=== PATIENT | female | born 1950 | race Caucasian/White ===

== ENCOUNTER 2016-12-23 04:54 | Outpatient (CLI) | payer OTHER | END 2016-12-23 04:55 | disposition critical access hospital (66) | DX: M79.661 Pain in right lower leg (principal); R09.89 Other specified symptoms and signs involving the circulatory and respiratory systems; R47.9 Unspecified speech disturbances; R41.0 Disorientation, unspecified | CPT/HCPCS: A0425; A0429 ==

== ENCOUNTER 2016-12-23 05:15 | Observation (INO) | payer OTHER ==
--- NOTE | 2016-12-23 05:30 | ED Physician Documentation ---
History of Present Illness - Stated complaint Stated Complaint: ALOC/KNEE PN - Chief complaint Chief Complaint: Neuro - History obtained from History obtained from: Patient, EMS - History of Present Illness Timing: How many hours ago (1) Pain level max: 6 Pain level now: 0 Improved by: nothing Worsened by: nothing - Additonal information Additional information: She is a 66-year-old female who presents to the emergency department complaining of right knee pain earlier tonight, this is since resolved. Her mother reports that she also had approximately 5-10 minutes of "garbled speech" . No focal neurological deficits. This is since resolved. Patient states that now she just feels very tired. was diagnosed with pulmonary embolism in August 2016, had been on warfarin, but stopped this 5 days ago. Has a history of A. fib. had a small amount of chest pain and difficulty breathing tonight. She has an appointment with her PCP in 2 weeks to have her right knee injected with steroids. States she does not normally drink alcohol, but had vodka last night and took Vicodin for her knee and back pain. This was approx 8pm. Went to bed at 11p. Review of Systems Ten Systems: 10 systems reviewed and negative Constitutional: denies: Fever, Chills Ears: denies: Ear pain Nose: denies: Rhinorrhea / runny nose, Congestion Throat: denies: Sore throat Cardiac: denies: Chest pain / pressure Respiratory: denies: Cough GI: denies: Abdominal Pain, Nausea, Vomiting, Diarrhea Skin: denies: Rash Musculoskeletal: denies: Neck pain, Back pain Neurologic: denies: Focal weakness, Numbness, Headache PD PAST MEDICAL HISTORY - Past Medical History Past Medical History: Yes Endocrine/Autoimmune: HyPOthyroidism Other Past Medical History: Pe - Past Surgical History Past Surgical History: No - Present Medications Home Medications: Ambulatory Orders Medication Instructions Recorded Confirmed Levothyroxine Sodium [Synthroid] 175 mcg PO DAILY 12/23/16 12/23/16 - Allergies Allergies/Adverse Reactions: Allergies Allergy/AdvReac Type Severity Reaction Status Date / Time No Known Drug Allergies Allergy Verified 12/23/16 05:22 - Social History Does the pt smoke?: No Smoking Status: Never smoker Does the pt drink ETOH?: Yes Does the pt have substance abuse?: No - Immunizations Immunizations are current?: Yes - POLST Patient has POLST: No PD ED PE NORMAL - Vitals Vital signs reviewed: Yes - General General: Alert and oriented X 3, No acute distress, Well developed/nourished - HEENT HEENT: Atraumatic, PERRL, EOMI, Ears normal, Moist mucous membranes, Pharynx benign - Neck Neck: Supple, no meningeal sign, No bony TTP - Cardiac Cardiac: RRR, Strong equal pulses - Respiratory Respiratory: No respiratory distress, Clear bilaterally - Abdomen Abdomen: Soft, Non tender, Non distended - Back Back: No CVA TTP, No spinal TTP - Derm Derm: Warm and dry, No rash - Extremities Extremities: No deformity, No tenderness to palpate, No edema, No calf tenderness / cord - Neuro Neuro: Alert and oriented X 3, facing machine operator 2-12 intact, No motor deficit, No sensory deficit, Normal speech - Psych Psych: Normal mood, Normal affect Results - Vitals Vitals: Vital Signs - 24 hr 12/23/16 12/23/16 05:14 05:54 Temperature 36.9 C Heart Rate 78 73 Respiratory 16 16 Rate Blood Pressure 146/75 H 117/57 L O2 Saturation 98 94 Oxygen O2 Source Room air - EKG (time done) 0529 Rate: Rate (enter#) (77) Rhythm: NSR [place]: Normal Intervals: Normal [place] QRS: Normal Ischemia: Normal ST segments, Q waves (III) - Labs Labs: Laboratory Tests 12/23/16 12/23/16 12/23/16 05:30 05:49 05:49 WBC 5.9 RBC 4.16 L Hgb 12.6 Hct 37.6 MCV 90.5 MCH 30.4 MCHC 33.6 RDW 13.8 Plt Count 203 MPV 10.0 Neut # 2.4 Lymph # 2.6 [place] # 0.6 Eos # 0.2 Baso # 0.0 Absolute Nucleated RBC 0.00 Nucleated RBCs 0.0 Sodium 140 Potassium 3.5 Chloride 107 Carbon Dioxide 25 Anion Gap 8.0 BUN 13 Creatinine 0.6 Estimated GFR (MDRD) 101 Glucose 114 H Calcium 8.8 Total Bilirubin 0.6 AST 25 ALT 20 Alkaline Phosphatase 92 Troponin I Total Protein 6.8 Albumin 3.9 Globulin 2.9 Albumin/Globulin Ratio 1.3 Lipase 16 L Urine Color YELLOW Urine Clarity CLEAR Urine pH 7.0 Ur Specific [place] 1.010 Urine Protein NEGATIVE Urine Glucose (UA) NEGATIVE Urine Ketones NEGATIVE Urine Occult Blood NEGATIVE Urine Nitrite NEGATIVE Urine Bilirubin NEGATIVE Urine Urobilinogen 0.2 (NORMAL) Ur Leukocyte Esterase SMALL H Urine RBC None Seen Urine WBC 4-5 Ur Squamous Epith Cells MOD Squamous H Urine Bacteria None Seen Ur Microscopic Review INDICATED Urine Culture Comments NOT INDICATED Salicylates < 6.0 Urine Opiates Screen POSITIVE H Ur Oxycodone Screen NEGATIVE Urine Methadone Screen NEGATIVE Ur Propoxyphene Screen NEGATIVE Acetaminophen < 10 L Ur Barbiturates Screen NEGATIVE Ur Tricyclics Screen NEGATIVE Ur Phencyclidine Scrn NEGATIVE Ur Amphetamine Screen POSITIVE H U Methamphetamines Scrn NEGATIVE U Benzodiazepines Scrn NEGATIVE Urine Cocaine Screen NEGATIVE U Cannabinoids Screen NEGATIVE Ethyl Alcohol < 5.0 12/23/16 05:49 WBC RBC Hgb Hct MCV MCH MCHC RDW Plt Count MPV Neut # Lymph # [place] # Eos # Baso # Absolute Nucleated RBC Nucleated RBCs Sodium Potassium Chloride Carbon Dioxide Anion Gap BUN Creatinine Estimated GFR (MDRD) Glucose Calcium Total Bilirubin AST ALT Alkaline Phosphatase Troponin I < 0.04 Total Protein Albumin Globulin Albumin/Globulin Ratio Lipase Urine Color Urine Clarity Urine pH Ur Specific [place] Urine Protein Urine Glucose (UA) Urine Ketones Urine Occult Blood Urine Nitrite Urine Bilirubin Urine Urobilinogen Ur Leukocyte Esterase Urine RBC Urine WBC Ur Squamous Epith Cells Urine Bacteria Ur Microscopic Review Urine Culture Comments Salicylates Urine Opiates Screen Ur Oxycodone Screen Urine Methadone Screen Ur Propoxyphene Screen Acetaminophen Ur Barbiturates Screen Ur Tricyclics Screen Ur Phencyclidine Scrn Ur Amphetamine Screen U Methamphetamines Scrn U Benzodiazepines Scrn Urine Cocaine Screen U Cannabinoids Screen Ethyl Alcohol - Rads (name of study) head CT Radiology: Prelim report reviewed, EMP read contemporaneously, See rad report ( no acute abnormality.) cxr Radiology: Prelim report reviewed, EMP read contemporaneously, See rad report ( no acute disease) PD MEDICAL DECISION MAKING - ED course Complexity details: reviewed results, re-evaluated patient, considered differential, d/w patient, d/w it solutions sales consultant ED course: Patient is a 66-year-old female who presents to the emergency department with what sounds like a TIA tonight, with 10-15 minutes of garbled speech. She was recently taken off warfarin, approximately 4-5 days ago. They thought that her pulmonary embolism was due to estrogen use. She is not currently taking aspirin. No focal neurological deficits here. No acute laboratory abnormalities to explain her symptoms. Discussed the case with Dr. Mccain and will place in observation for TIA. This document was made in part using voice recognition software. While efforts are made to proofread this document, sound alike and grammatical errors may occur. Departure - Departure Disposition: ED Place in Observation Clinical Impression: TIA (transient ischemic attack) Qualifiers: Transient cerebral ischemia type: unspecified Qualified Code(s): G45.9 - Transient cerebral ischemic attack, unspecified Condition: Good NIHSS - Time Time: 05:25 - Level of Consciousness Level of consciousness: (0) Alert, Keenly responsive LOC Questions: (0) Answers both Q's correct LOC Commands: (0) Performs both correctly - Gaze Best Gaze: (0) Normal - Visual Visual: (0) No loss - Facial Palsy Facial Palsy: (0) Normal, symmetrical movement - Motor Arms (both separate) Motor Arm (right): (0) No drift Motor Arm (left): (0) No drift - Motor Legs (both separate) Motor Leg (right): (0) No drift Motor Leg (left): (0) No drift - Limb Ataxia Limb Ataxia: (0) Absent - Sensory Sensory: (0) Normal - Best Language Best Language: (0) No aphasia - Dysarthria Dysarthria: (0) Normal - Extinction and Inattention (formally neg Extinction and inattention: (0) No abnormality - Total Score/Results Total Score/Result: 0
[2016-12-23 05:38] LABS: BILIRUBIN,URINE NEGATIVE (NEGATIVE)
[2016-12-23 05:54] LABS: UA w/ MICROSCOPIC CHARGE YES; UR CULTURE IF IND NOT INDICATED
[2016-12-23 05:56] LABS: BASOPHILS % (AUTO) 0.8 %; EOSINOPHILS # (AUTO) 0.2 10^3/uL (0.0-0.7); EOSINOPHILS % (AUTO) 2.8 %; HCT - HEMATOCRIT 37.6 % (37.0-47.0); HGB - HEMOGLOBIN 12.6 g/dL (12.0-16.0); LYMPHOCYTES # (AUTO) 2.6 10^3/uL (1.5-3.5); LYMPHOCYTES % (AUTO) 44.7 %; MEAN CORPUSCULAR HEMOGLOBIN 30.4 pg (27.0-31.0); MEAN CORPUSCULAR HGB CONC 33.6 g/dL (32.0-36.0); MEAN CORPUSCULAR VOLUME 90.5 fL (81.0-99.0); MONOCYTES # (AUTO) 0.6 10^3/uL (0.0-1.0); MONOCYTES % (AUTO) 10.6 %; NEUTROPHILS # (AUTO) 2.4 10^3/uL (1.5-6.6); NEUTROPHILS % (AUTO) 41.1 %; RED BLOOD COUNT 4.16 10^6/uL (4.20-5.40); RED CELL DISTRIBUTION WIDTH 13.8 % (12.0-15.0); UNCORRECTED WHITE BLOOD COUNT 5.9 x10^3/uL; WHITE BLOOD COUNT 5.9 x10^3/uL (4.8-10.8)
[2016-12-23 06:11] LABS: ALBUMIN/GLOBULIN RATIO 1.3 (1.0-2.2); BILIRUBIN,TOTAL 0.6 mg/dL (0.2-1.0); BUN - BLOOD UREA NITROGEN 13 mg/dL (6-20); CALCIUM 8.8 mg/dL (8.5-10.3); CARBON DIOXIDE - CO2 25 mmol/L (21-32); CHLORIDE 107 mmol/L (101-111); CREATININE 0.6 mg/dL (0.4-1.0); GFR - MDRD 101 (>89); GLUCOSE 114 mg/dL (70-100); LIPASE 16 U/L (22-51); POTASSIUM 3.5 mmol/L (3.5-5.0); SALICYLATE < 6.0 mg/dL; SODIUM 140 mmol/L (135-145); TOTAL PROTEIN 6.8 g/dL (6.7-8.2)
[2016-12-23 06:13] LABS: ACETAMINOPHEN < 10 ug/mL (10-30)
--- NOTE | 2016-12-23 06:17 | XRAY Preliminary Report ---
Exam: XR Chest 1 View IMPRESSION: No significant cardiopulmonary abnormality demonstrated. [facility] SITE ID: [id number]
--- NOTE | 2016-12-23 06:20 | XRAY Report ---
EXAM: CHEST RADIOGRAPHY EXAM DATE: 12/23/2016 05:48 AM. CLINICAL HISTORY: Chest pain. COMPARISON: None. TECHNIQUE: 1 view. FINDINGS: Lungs/Pleura: Small linear left lung base atelectasis and/or scarring. No focal opacities evident. No pleural effusion. No pneumothorax. Mediastinum: Within exam limitations, cardiomediastinal contour is normal. Other: Flattening deformity of the posterior supra-acetabular aspect of the left humeral head noted. On anchor within the left humeral head. IMPRESSION: No significant cardiopulmonary abnormality demonstrated. [facility] Referring Provider Line: [phone] SITE ID: [id number]
[2016-12-23] MEDS ORDERED: ACETAMINOPHEN 325 MG TABLET PO PRN (06:26)
[2016-12-23] MEDS ORDERED: IBUPROFEN 600 MG TABLET PO PRN (06:26)
[2016-12-23] MEDS ORDERED: ONDANSETRON 4 MG/2 ML VIAL IVP PRN (06:26)
[2016-12-23] MEDS ORDERED: HYDROcod/ACETAM 5/325 MG TABLET PO PRN (06:26)
[2016-12-23] MEDS ORDERED: PROCHLORPERAZINE 10 MG/2 ML VIAL IVP PRN (06:26)
[2016-12-23] MEDS ORDERED: SODIUM CHLORIDE FLUSH 0.9% 10 ML SYRINGE IVP PRN (06:26)
--- NOTE | 2016-12-23 06:27 | CT Preliminary Report ---
Exam: CT Head W/O IMPRESSION: Normal head CT. [facility] SITE ID: [id number]
--- NOTE | 2016-12-23 06:30 | CT Report ---
EXAM: CT HEAD EXAM DATE: 12/23/2016 05:47 AM. CLINICAL HISTORY: Slurred speech. COMPARISON: None. TECHNIQUE: Multiaxial CT images were obtained from the foramen magnum to the vertex. IV contrast: Non e. Reformats: Coronal. In accordance with CT protocol optimization, one or more of the following dose reduction techniques w ere utilized for this exam: automated exposure control, adjustment of mA and/or KV based on patient s ize, or use of iterative reconstructive technique. FINDINGS: Parenchyma: No intraparenchymal hemorrhage. No evidence of mass, midline shift, or CT findings of inf arction. Perez-white differentiation is distinct. Extraaxial Spaces: Normal for age. No subdural or epidural collections identified. Ventricles: Normal in size and position. Sinuses: Imaged paranasal sinuses, orbits, and mastoids show no significant abnormality. Bones: No evidence of fracture or calvarial defect. Other: None. IMPRESSION: Normal head CT. [facility] Referring Provider Line: [phone] SITE ID: [id number]
[2016-12-23 06:51] LABS: CHOL/HDL RATIO 4.9 (<4.4); CHOLESTEROL 271 mg/dL; HDL CHOLESTEROL 55 mg/dL; TRIGLYCERIDES 493 mg/dL
[2016-12-23] MEDS ORDERED: PANTOPRAZOLE 40 MG TABLET PO SCH (07:00)
[2016-12-23] MEDS ORDERED: LEVOTHYROXINE 75 MCG TABLET PO SCH (07:00)
--- NOTE | 2016-12-23 07:00 | HISTORY & PHYSICAL EXAMINATION ---
Chief Complaint - Chief Complaint Chief Complaint: garbled speech History of Present Illness - Admitted From Admitted From:: emergency department - History Obtained From Records Reviewed: yes History obtained from: patient Exam Limitations: none - History of Present Illness HPI Comment/Other: Patient is a 66-year-old female with a past medical history significant for hypothyroidism, paroxysmal atrial fibrillation, depression, osteoarthritis and recent pulmonary embolism in August of 2016 for which she stopped taking Coumadin just this week after she convinced her primary care physician that she did not need to take it presented to the emergency department with a chief complaint of garbled speech. The patient states that she was in her normal state of health until last night when she started having pain in her knee and right leg. She states that she took a Vicodin and had some alcohol last night and went to bed. She states she woke in the middle of the night and she felt like something was wrong. She states that she was having tightness in her chest she felt short of air and was dizzy. She states that she told her mom to call 911 because she felt that something was wrong and she needed to go to the hospital. The patient is here on [facility] is in her mom she is originally from [place], [place]. She states that when she tried to speak to her mom she could not get the words out. Her mom said that there was something wrong with her speech. The patient states that this lasted for 5-10 minutes and resolved prior to coming into the emergency department. She states however when she arrived she began had trouble expressive aphasia. This however again resolved. She states now she continues to have tightness in her chest and feels anxious. The patient otherwise denies any headaches, blurred vision, runny nose, she denies any fevers or chills. The patient denies any abdominal pain nausea vomiting or diarrhea. She denies any urinary symptoms. She denies any focal neurologic deficits. On presentation to the emergency department the patient's vital signs were stable. The patient's work was all within normal limits. She underwent a CT of her head which showed no acute intracranial process. Patient had a chest x-ray which showed no acute pulmonary abnormalities. Patient's EKG and troponin were within normal limits. The patient was placed in observation for possible TIA. Review of Systems - Constitutional Constitutional: denies: Fatigue, Fever, Chills, Malaise, Weakness, Poor appetite , Diaphoresis, Night sweats, Weight gain, Weight loss - Eyes Eyes: denies: Pain, Amaurosis, Blurred vision, Spots in vision, Vision loss, Dipolpia, Corrective lenses - Ears, Nose & Throat Ears, Nose & Throat: denies: Ear pain, Hearing loss, Hearing aids, Tinnitus, Vertigo, Nasal pain, Nasal obstruction, Nasal congestion, Sore throat, Hoarseness - Cardiovascular Cariovascular: reports: Exertional dyspnea, Decr. exercise tolerance. denies: Irregular heart rate, Palpitations, Chest pain, Edema, Lightheadedness, Syncope , Orthopnea - Respiratory Respiratory: reports: SOB at rest, SOB with exertion, Pleuritic pain. denies: Cough, Sputum production, Wheezing, Hemoptysis, Orthopnea - Gastrointestinal Gastrointestinal: denies: Abdominal pain, Abdominal distention, Constipation, Diarrhea, Change in bowel habits, Black stools, Bloody stools, Nausea, Vomiting , Coffee grounds emesis, Reflux/heartburn, Poor appetite - Genitourinary Genitourinary: denies: Dysuria, Frequency, Urgency, Hematuria - Musculoskeletal Musculoskeletal: reports: Stiffness, Joint pain (knee right). denies: Muscle pain, Back pain, Muscle aches, Limited range of motion, Muscle weakness - Integumentary Integumentary: denies: Rash, Lesions, Dryness, Nail changes - Neurological Neurological: reports: Dizziness, Slurred speech. denies: General weakness, Focal weakness, Headache, Numbness, Memory problems, Abnormal gait, Seizures, Incoordination - Psychiatric Psychiatric: reports: Depression, Anxiety. denies: Suicidal - Endocrine Endocrine: denies: Polyuria, Polydypsia, Polyphagia, Intolerance to cold - Hematologic/Lymphatic Hematologic/Lymphatic: denies: Anemia, Bruising, Lymphadenopathy History - Past Medical History Cardiovascular: reports: Atrial flutter (paraoxysmal ) Respiratory: reports: Other (PE) Neuro: reports: None Endocrine/Autoimmune: reports: HyPOthyroidism GI: reports: None COMPOUNDING TECHNICIAN: reports: None : reports: None HEENT: reports: None Psych: reports: Depression, Anxiety Musculoskeletal: reports: Osteoarthritis Derm: reports: None MRSA Hx?: No Other Past Medical History: 1. Thyroidism. 2. Paroxysmal atrial fibrillation. 3. Pulmonary embolism in August of 2016. 4. Hypothyroidism. 5. Osteoarthritis. 6. Depression. 7. Anxiety - Family & Social History Family History: Mother: Alive and Well, CAD, Hypertension, LA, Father: Family History Comment/Other: Patient states that her mother has had an LA, hypertension and aortic and thoracic aneurysms. Her grandfather had an LA. Her father of old age. Living arrangement: At home Living Situation: Alone Social History Notes: The patient is currently visiting her mom in [facility] for the holidays. She lives in [facility] she lives alone. She is she has one son. She has never smoked she does drink alcohol occasionally and denies any illicit drug use. - Substance History Use: Uses substance without health or social issues: NONE Abuse: Recurrent use of substance despite neg consequences: NONE Dependence: Experiences withdrawal or developed tolerances: NONE - POLST Patient has POLST: No POLST Status: Full Code Meds/Allgy - Home Medications Home Medications: Ambulatory Orders Medication Instructions Recorded Confirmed HYDROcod/ACETAM 5/325 [Mchenry 5/325] 1 - 2 ea PO Q6H PRN 12/23/16 12/23/16 Levothyroxine Sodium [Synthroid] 175 mcg PO DAILY 12/23/16 12/23/16 Venlafaxine ER [Effexor ER] 75 mg PO DAILY 12/23/16 12/23/16 - Allergies Allergies/Adverse Reactions: Allergies Allergy/AdvReac Type Severity Reaction Status Date / Time No Known Drug Allergies Allergy Verified 12/23/16 05:22 Exam - Vital Signs Reviewed Vital Signs: Yes - Physical Exam General Appearance: positive: Alert, Other (Drowsy, anxious) Eyes Bilateral: positive: Normal inspection, PERRL, EOMI, No lid inflammation, Conjunctivae nml, No scleral icterus ENT: positive: ENT inspection nml, Pharynx nml, No signs of dehydration. negative: Purulent nasal drainage, Pharyngeal erythema, Oral lesions Neck: positive: Nml inspection, Thyroid nml, No JVD, Trachea midline. negative : Thyromegaly, Lymphadenopathy (R), Lymphadenopathy (L), Stiff neck, Tracheal deviation Respiratory: positive: Chest non-tender, No respiratory distress, Rales, Rhonchi (bilateral bases). negative: Wheezes Cardiovascular: positive: Regular rate & rhythm, No murmur, No gallop Peripheral Pulses: positive: 2+ Abdomen: positive: Non-tender, No organomegaly, Nml bowel sounds, No distention. negative: Guarding, Rebound, Hepatomegaly Back: positive: Nml inspection. negative: CVA tenderness (R), CVA tenderness (L ) Skin: positive: Color nml, No rash, Warm, Dry. negative: Cyanosis, Pallor Extremities: positive: Non-tender, Full ROM, Nml appearance, Pedal edema (mild) Neurologic/Psychiatric: positive: Oriented x3, CN's nml (2-12), Motor nml, Sensation nml, Depressed mood/affect Conclusion/Plan - Problem List (1) TIA (transient ischemic attack) Conclusion/Plan: Patient presented with expressive aphasia for 5-10 mins this morning and again had symptoms on arrival to ER Symptoms resolved Patient stopped coumadin this week for PE and has history of paroxysmal a fib so is at risk of embolic strokes Plan: Aspirin Lipitor MRAA head and neck MRI brain Echo Lipid profile [facility] Qualifiers: Transient cerebral ischemia type: unspecified Qualified Code(s): G45.9 - Transient cerebral ischemic attack, unspecified (2) History of pulmonary embolism Conclusion/Plan: Patient had PE in August 2016 stopped coumadin this week 3 months early because she did not like taking it She is now having chest pain and shortness of breath with dizziness CXR, EKG and trop negative Plan: Repeat CTA thorax if positive she needs another 3-6 months of coumadin (3) Hypothyroidism Conclusion/Plan: Stable COntinue synthroid (4) Depression Conclusion/Plan: Depressed and anxious Continue effexor - Lab Results Lab results reviewed: Yes Fish Bones: 12/23/16 05:49 12/23/16 05:49 Other Lab Results: Laboratory Results WBC 5.9 x10^3/uL (4.8-10.8) 12/23/16 05:49 RBC 4.16 10^6/uL (4.20-5.40) L 12/23/16 05:49 Hgb 12.6 g/dL (12.0-16.0) 12/23/16 05:49 Hct 37.6 % (37.0-47.0) 12/23/16 05:49 MCV 90.5 fL (81.0-99.0) 12/23/16 05:49 MCH 30.4 pg (27.0-31.0) 12/23/16 05:49 MCHC 33.6 g/dL (32.0-36.0) 12/23/16 05:49 RDW 13.8 % (12.0-15.0) 12/23/16 05:49 Plt Count 203 10^3/uL (130-450) 12/23/16 05:49 MPV 10.0 fL (7.9-10.8) 12/23/16 05:49 Neut # 2.4 10^3/uL (1.5-6.6) 12/23/16 05:49 Lymph # 2.6 10^3/uL (1.5-3.5) 12/23/16 05:49 [place] # 0.6 10^3/uL (0.0-1.0) 12/23/16 05:49 Eos # 0.2 10^3/uL (0.0-0.7) 12/23/16 05:49 Baso # 0.0 10^3/uL (0.0-0.1) 12/23/16 05:49 Absolute Nucleated RBC 0.00 x10^3/uL 12/23/16 05:49 Nucleated RBCs 0.0 /100WBC 12/23/16 05:49 Sodium 140 mmol/L (135-145) 12/23/16 05:49 Potassium 3.5 mmol/L (3.5-5.0) 12/23/16 05:49 Chloride 107 mmol/L (101-111) 12/23/16 05:49 Carbon Dioxide 25 mmol/L (21-32) 12/23/16 05:49 Anion Gap 8.0 (6-13) 12/23/16 05:49 BUN 13 mg/dL (6-20) 12/23/16 05:49 Creatinine 0.6 mg/dL (0.4-1.0) 12/23/16 05:49 Estimated GFR (MDRD) 101 (>89) 12/23/16 05:49 Glucose 114 mg/dL (70-100) H 12/23/16 05:49 Calcium 8.8 mg/dL (8.5-10.3) 12/23/16 05:49 Total Bilirubin 0.6 mg/dL (0.2-1.0) 12/23/16 05:49 AST 25 IU/L (10-42) 12/23/16 05:49 ALT 20 IU/L (10-60) 12/23/16 05:49 Alkaline Phosphatase 92 IU/L (42-121) 12/23/16 05:49 Troponin I < 0.04 ng/mL (<0.49) 12/23/16 05:49 Total Protein 6.8 g/dL (6.7-8.2) 12/23/16 05:49 Albumin 3.9 g/dL (3.2-5.5) 12/23/16 05:49 Globulin 2.9 g/dL (2.1-4.2) 12/23/16 05:49 Albumin/Globulin Ratio 1.3 (1.0-2.2) 12/23/16 05:49 Triglycerides 493 mg/dL (-149) H 12/23/16 05:49 Cholesterol 271 mg/dL (-199) H 12/23/16 05:49 LDL Cholesterol Direct 152 mg/dL (-129) H 12/23/16 05:49 LDL Cholesterol, Calc Not Reportable 12/23/16 05:49 VLDL Cholesterol Not Reportable 12/23/16 05:49 HDL Cholesterol 55 mg/dL (60-) L 12/23/16 05:49 LDL/HDL Ratio Not Reportable 12/23/16 05:49 Cholesterol/HDL Ratio 4.9 (<4.4) 12/23/16 05:49 Lipase 16 U/L (22-51) L 12/23/16 05:49 TSH 0.51 uIU/mL (0.34-5.60) 12/23/16 05:49 Urine Color YELLOW 12/23/16 05:30 Urine Clarity CLEAR (CLEAR) 12/23/16 05:30 Urine pH 7.0 PH (5.0-7.5) 12/23/16 05:30 Ur Specific Gray 1.010 (1.002-1.030) 12/23/16 05:30 Urine Protein NEGATIVE mg/dL (NEGATIVE) 12/23/16 05:30 Urine Glucose (UA) NEGATIVE mg/dL (NEGATIVE) 12/23/16 05:30 Urine Ketones NEGATIVE mg/dL (NEGATIVE) 12/23/16 05:30 Urine Occult Blood NEGATIVE (NEGATIVE) 12/23/16 05:30 Urine Nitrite NEGATIVE (NEGATIVE) 12/23/16 05:30 Urine Bilirubin NEGATIVE (NEGATIVE) 12/23/16 05:30 Urine Urobilinogen 0.2 (NORMAL) E.U./dL (NORMAL) 12/23/16 05:30 Ur Leukocyte Esterase SMALL (NEGATIVE) H 12/23/16 05:30 Urine RBC None Seen /HPF (0-5) 12/23/16 05:30 Urine WBC 4-5 /HPF (0-5) 12/23/16 05:30 Ur Squamous Epith Cells MOD Squamous (<= Few) H 12/23/16 05:30 Urine Bacteria None Seen /HPF (None Seen) 12/23/16 05:30 Ur Microscopic Review INDICATED 12/23/16 05:30 Urine Culture Comments NOT INDICATED 12/23/16 05:30 Salicylates < 6.0 mg/dL 12/23/16 05:49 Urine Opiates Screen POSITIVE (NEGATIVE) H 12/23/16 05:30 Ur Oxycodone Screen NEGATIVE (NEGATIVE) 12/23/16 05:30 Urine Methadone Screen NEGATIVE (NEGATIVE) 12/23/16 05:30 Ur Propoxyphene Screen NEGATIVE (NEGATIVE) 12/23/16 05:30 Acetaminophen < 10 ug/mL (10-30) L 12/23/16 05:49 Ur Barbiturates Screen NEGATIVE (NEGATIVE) 12/23/16 05:30 Ur Tricyclics Screen NEGATIVE (NEGATIVE) 12/23/16 05:30 Ur Phencyclidine Scrn NEGATIVE (NEGATIVE) 12/23/16 05:30 Ur Amphetamine Screen POSITIVE (NEGATIVE) H 12/23/16 05:30 U Methamphetamines Scrn NEGATIVE (NEGATIVE) 12/23/16 05:30 U Benzodiazepines Scrn NEGATIVE (NEGATIVE) 12/23/16 05:30 Urine Cocaine Screen NEGATIVE (NEGATIVE) 12/23/16 05:30 U Cannabinoids Screen NEGATIVE (NEGATIVE) 12/23/16 05:30 Ethyl Alcohol < 5.0 mg/dL 12/23/16 05:49 - Diagnostic Imaging Results Diagnostic Imaging Results: positive: Final report reviewed - EKG Results EKG Interpreted Independently: Yes Issues/Core Measures - Anticipated LOS Anticipated Stay Length: Less than 2 midnights - DVT/VTE - Prophylaxis VTE/DVT Device ordered at admit?: Yes
[2016-12-23 07:14] LABS: LDL CHOLESTEROL,DIRECT 152 mg/dL
[2016-12-23] MEDS ORDERED: ASPIRIN 325 MG TABLET PO SCH (08:00)
[2016-12-23] MEDS ORDERED: POLYETHYLENE GLYCOL 3350 17 GM PACKET PO SCH (09:00)
[2016-12-23] MEDS ORDERED: LEVOTHYROXINE SODIUM 175 MCG PO SCH (09:00)
[2016-12-23] MEDS: LEVOTHYROXINE 100 MCG TABLET PO SCH ×2 (09:31→11:20)
[2016-12-23] MEDS ORDERED: LORazepam 0.5 MG TABLET PO SCH (10:00)
[2016-12-23] MEDS ORDERED: IOPAMIDOL-300 100 ML VIAL IVP ONE (10:34)
[2016-12-23] MEDS ORDERED: GADOBUTROL 10 MMOL/10 ML SYRINGE IVP ONE (10:53)
--- NOTE | 2016-12-23 12:11 | MRI Preliminary Report ---
Exam: MRI Angio Brain W/O (MRA) IMPRESSION: 1. No hemodynamically significant stenosis, dissection, occlusion, aneurysm, or vascular malformation within the intracranial arteries. 2. Near origin of the right COMPRESSED GASES TESTER. [facility] SITE ID: [id number]
--- NOTE | 2016-12-23 12:14 | MRI Report ---
EXAM MRA BRAIN EXAM DATE: 12/23/2016 11:17 AM. CLINICAL HISTORY: TIA. COMPARISON: CT head 12/23/2016, MRI brain 12/23/2016 is 4. Very. Via a left port is in so it seems to be more interested in covering the whole right seventh and maybe CT maxillofacial is the right-sided would have to make sure the post op result: The changes of the a bdomen is the area of abnormal bilaterally with color almost 99. All venous TECHNIQUE: Multiplanar, multisequence MRA sequences of the brain were performed. Other: None. Post-pr ocessing: Multiplanar 3D MIP reconstructions. IV Contrast: None. FINDINGS: RIGHT Internal Carotid (ICA): No aneurysm, stenosis or anomaly. Middle Cerebral (MCA): No aneurysm, stenosis or anomaly. Anterior Cerebral (ANIYAH): No aneurysm, stenosis or anomaly. Posterior Cerebral (KEG FILLER): The P1 segment of the right KEG FILLER is hypoplastic but patent. Prominent right posterior communicating artery primarily supplies the right KEG FILLER which is otherwise unremarkable. Posterior Communicating (P-COM): No aneurysm, stenosis or anomaly. Vertebral: No aneurysm, stenosis or anomaly in the visualized upper vertebral artery. LEFT Internal Carotid (ICA): No aneurysm, stenosis or anomaly. Middle Cerebral (MCA): No aneurysm, stenosis or anomaly. Anterior Cerebral (ANIYAH): No aneurysm, stenosis or anomaly. Posterior Cerebral (KEG FILLER): No aneurysm, stenosis or anomaly. Posterior Communicating (P-COM): No aneurysm, stenosis or anomaly. Vertebral: No aneurysm, stenosis or anomaly in the visualized upper vertebral artery. MIDLINE Anterior Communicating (A-COM): No aneurysm, stenosis or anomaly. Other: None. IMPRESSION: 1. No hemodynamically significant stenosis, dissection, occlusion, aneurysm, or vascular malformation within the intracranial arteries. 2. Near origin of the right KEG FILLER. [facility] Referring Provider Line: [phone] SITE ID: [id number]
[2016-12-23 12:16] VITALS: BP 149/82
--- NOTE | 2016-12-23 12:20 | MRI Report ---
EXAM: MRI BRAIN WITHOUT CONTRAST EXAM DATE: 12/23/2016 11:17 AM. CLINICAL HISTORY: TIA. COMPARISON: CT head 12/23/2016 TECHNIQUE: Multiplanar, multisequence T1-weighted and fluid-sensitive MR sequences of the brain were performed. Sequences optimized for routine evaluation. Other: None. IV Contrast: None. FINDINGS: Brain Volume: Normal for age. Parenchyma/Dura: No masses, infarcts, or hemorrhage. Scattered T2/FLAIR hyperintense periventricular and deep white matter lesions within cerebral hemispheres bilaterally. No parenchymal microhemorrhage s. Ventricles/Cisterns: Normal. No hydrocephalus. Sinuses: Normal. No sinusitis evident. Bones: Normal. Other: None. IMPRESSION: 1. No evidence of acute or subacute infarct, intracranial hemorrhage, mass, midline shift, or hydroce phalus. 2. Scattered T2/FLAIR hyperintense periventricular and deep white matter lesions within cerebral dianne spheres bilaterally. While nonspecific, these are favored to represent sequela of chronic microangiop athy. [facility] Referring Provider Line: [phone] SITE ID: [id number]
--- NOTE | 2016-12-23 12:29 | CT Report ---
CT PULMONARY ANGIOGRAM: 12/23/2016 CLINICAL INDICATION: History of pulmonary embolus, stopped Coumadin, chest pain, shortness of breath. TECHNIQUE: Axial CT images of the chest were obtained with 80 mL of Isovue-[address] intravenously[address] No prev ious CT is available for comparison. FINDINGS: The heart and great vessels demonstrate mild atherosclerotic calcification. There is no ev idence of pulmonary embolus. No hilar or mediastinal lymphadenopathy is present. The lungs demonstrat e minimal atelectasis. No focal consolidation or interstitial edema is appreciated. No effusion or pn eumothorax is present. The osseous structures demonstrate degenerative changes. Limited evaluation of upper abdominal structures demonstrates normal adrenal glands. IMPRESSION: NO EVIDENCE OF PULMONARY EMBOLUS. NO EVIDENT ETIOLOGY FOR PATIENT'S CHEST PAIN AND SHORT NESS OF BREATH. In accordance with CT protocol optimization, one or more of the following dose reduction techniques w ere utilized for this exam: automated exposure control, adjustment of mA and/or KV based on patient size, or use of iterative reconstructive technique. JOB #: [id number] EXT JOB #:[id number]
--- NOTE | 2016-12-23 13:06 | MRI Preliminary Report ---
Exam: MRI Angio Neck W/WO (MRA) Impression: Normal neck MRA. SITE ID: [id number]
[2016-12-23] MEDS ORDERED: SODIUM CHLORIDE FLUSH 0.9% 10 ML SYRINGE IVP SCH (14:00)
--- NOTE | 2016-12-23 14:30 | Discharge Plan ---
Discharge Plan Disposition: 01 Home, Self Care Condition: Good Prescriptions: Gemfibrozil 600 mg PO BID #60 tablet Diet: Regular Activity Restrictions: No Restrictions Additional Instructions or Follow Up instructions: consider tapering off of carisoprodal and norco, both are highly addicting Follow up with your pcp to have your cholesterol rechecked in 3 months No Smoking: If you smoke, Please STOP! Call for help. Follow-up with: Narendra Huddleston MD [Primary Care Provider] -
--- NOTE | 2016-12-23 15:17 | MRI Report ---
MR ANGIOGRAM NECK WITHOUT AND WITH CONTRAST EXAM DATE: 12/23/2016. INDICATION: 66-year-old female with history of migraine headaches. Since July or August of this ye ar the patient has been experiencing upper right eye vision changes during the migraine headaches. Pl ease assess. COMPARISON: None. TECHNIQUE: 1. T1 fat-saturated axial sequence. 2. 2-D [id number] MR angiography. 3. 3-D gadolinium enhanced MR angiography. 9 cc IV Gadavist. Significant arterial stenoses will be assessed using NASCET type measurements when possible. FINDINGS: There is normal branching of the aortic arch. No stenoses are identified in the first-order, supra-ao rtic arteries. Right Carotid Artery: Normal. Left Carotid Artery: Normal. Right Vertebral Artery: No significant stenosis at the origin. The V1 segment is unremarkable. There is considerable tortuosity throughout the V2 segment. No stenosis is demonstrated. The V3 and V4 segm ents are patent. 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 Left Vertebral Artery: Patent at origin and throughout V1, V2, V3 and V4 segments. There is considera ble tortuosity in the V2 segment; however, no stenosis or other focal abnormality is identified. IMPRESSION: Normal neck MRA. Referring Provider Line: [phone] SITE ID: [id number]
[2016-12-23] MEDS ORDERED: ATORVASTATIN 40 MG TABLET PO SCH (21:00)
--- NOTE | 2016-12-24 00:15 | DISCHARGE SUMMARY ---
DATE OF ADMISSION: 12/23/2016 DATE OF DISCHARGE: 12/23/2016 REASON FOR ADMISSION: Garbled speech. DISCHARGE DIAGNOSES 1. Possible transient ischemic attack. 2. History of pulmonary embolism. 3. Hypothyroidism. 4. Depression. 5. Chronic narcotic dependence and use of muscle relaxants. HOSPITAL COURSE: Patient is a 66-year-old female who presented with confusion and expressive aphasia that lasted 5-10 minutes. This occurred after she took Vicodin and drank wine. She had an MRI of h er brain and MRI/MRA of her neck with no evidence of acute processes. She also had a history of pulm onary embolism and had discontinued Coumadin 1 week ago after a 3-month course was completed. Her CT A was negative for acute pulmonary embolism, of which patient was informed. 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 Incidental finding of hypertriglyceridemia; patient was started on gemfibrozil 600 mg p.o. b.i.d. for 1 month, follow up with primary care provider for r efills and repeat cholesterol panel. JOB #: [id number] EXT JOB #:[id number]
== END 2016-12-23 14:47 | disposition home or self-care (01) ==
LOC: ED 05:15 → MS 06:26
PROVIDERS: ADMIT Internal Medicine; ATTEND Internal Medicine
DX: R47.01 Aphasia (principal); E03.9 Hypothyroidism, unspecified; F32.9 Major depressive disorder, single episode, unspecified; F11.20 Opioid dependence, uncomplicated; Z86.711 Personal history of pulmonary embolism; F41.9 Anxiety disorder, unspecified; E78.1 Pure hyperglyceridemia; R07.89 Other chest pain; R06.02 Shortness of breath; R06.00 Dyspnea, unspecified; M19.90 Unspecified osteoarthritis, unspecified site; F19.20 Other psychoactive substance dependence, uncomplicated; Z86.79 Personal history of other diseases of the circulatory system
CPT/HCPCS: 36415; 70450; 70544; 70549; 70551; 71010; 71275; 80053; 80061; 80306; 80307; 80320; 80329; 81001; 83690; 83721; 84443; 84484; 85025; 93005; 93306; 99218; 99284; 99285; A9270; A9585; Q9967; 81003; 87086

== ENCOUNTER 2024-01-06 14:16 | Emergency (ER) | payer MEDICARE, OTHER ==
--- NOTE | 2024-01-06 15:37 | XRAY Report ---
PROCEDURE: Knee 4+V LT INDICATIONS: Trauma TECHNIQUE: 4 views of the knee(s) were acquired. COMPARISON: None. FINDINGS: Bones: Left knee arthroplasty. Hardware components are in expected position. No acute fractures or d islocations. Fragmentation of the tibial tubercle possibly reflecting sequela of Jen-Schlatter's. No suspicious bony lesions. Soft tissues: No knee joint effusion. No suspicious soft tissue calcifications or masses. IMPRESSION: No fracture. No osseous lesion. If symptoms and/or clinical concern for pathology persists, further a ssessment with repeat plain film radiographs (7-10 days) or advanced imaging (CT, MR, bone scan) shou ld be considered. Reviewed by: Rochelle Stauffer MD, PhD on 01/06/2024 3:36 PM PDT Approved by: Rochelle Stauffer MD, PhD on 01/06/2024 3:36 PM PDT Station ID: [id number]
--- NOTE | 2024-01-06 18:06 | ED Physician Documentation ---
History of Present Illness - Stated complaint Stated Complaint: LT LEG INJ, SWOLLEN,PX - Chief complaint Chief Complaint: Ext Problem - Additonal information Additional information: 73-year-old female presents here in the emergency department for sudden onset left knee pain. She had an arthroplasty in May 2024 patient says that she has had multiple injuries to her left lower extremity recently she has had some falls she is also had some left lower extremity cellulitis and has been prescribed Keflex and has not missed any recent doses but feels like it is not working. She has an abrasion to her left ashu that has clear drainage but obvious. Erythema surrounding this abrasion significant bruising to her left sahu with a hematoma and significant left knee swelling and difficulty bending. She is unsure if she has had any recent fevers or chills but says the pain is excruciating with associated fear to the point where she was unable to put any weight on it. PD PAST MEDICAL HISTORY - Past Medical History Past Medical History: Yes Cardiovascular: Pulmonary embolism, Atrial flutter, Atrial fibrillation Respiratory: Other Neuro: None Endocrine/Autoimmune: HyPOthyroidism GI: Cholelithiasis SPD TECH: None : None HEENT: None Psych: Depression, Anxiety Musculoskeletal: Osteoarthritis Derm: None - Past Surgical History Past Surgical History: Yes General: Colonoscopy /SPD TECH: Hysterectomy HEENT: Tonsil/Adenoidectomy - Present Medications Home Medications: Ambulatory Orders Medication Instructions Recorded Confirmed Levothyroxine Sodium [Synthroid] 175 mcg PO DAILY 12/23/16 12/23/16 Venlafaxine ER [Effexor ER] 75 mg PO DAILY 12/23/16 12/23/16 gemfibroziL [Gemfibrozil] 600 mg PO BID #60 tablet 12/23/16 Apixaban [Eliquis] 5 mg PO BID 01/06/24 01/06/24 Ezetimibe [Zetia] 10 mg PO DAILY 01/06/24 Metoprolol Tartrate [Lopressor] 10 mg PO DAILY 01/06/24 Pravastatin [Pravachol] 80 mg PO DAILY 01/06/24 - Allergies Allergies/Adverse Reactions: Allergies Allergy/AdvReac Type Severity Reaction Status Date / Time No Known Drug Allergies Allergy Verified 01/06/24 14:49 - Social History Does the pt smoke?: No Smoking Status: Never smoker Does the pt drink ETOH?: Yes Does the pt have substance abuse?: No - Immunizations Immunizations are current?: Yes - POLST Patient has POLST: No POLST Status: Full Code Results - Vitals Vitals: Vital Signs - 24 hr 01/06/24 14:39 Temperature 36.6 C Heart Rate 66 Respiratory 15 Rate Blood Pressure 132/62 H O2 Saturation 97 Oxygen O2 Source Room air Departure - Departure
--- NOTE | 2024-01-06 18:12 | ED Physician Documentation ---
PD HPI LOWER EXT INJURY - Stated complaint Stated Complaint: LT LEG INJ, SWOLLEN,PX - Chief complaint Chief Complaint: Ext Problem - Additional information Additional information: 73-year-old female 1 year female presents emergency department for left knee pain. Patient says that she had a left knee arthroplasty May 2023 has been overall recovering well but the last couple days she has been having a couple different falls. She has a left sahu hematoma from a minor fall and she also has a left lower extremity abrasion that she is being treated for with Keflex for cellulitis. Patient says that she bent over but on her pants and felt sudden onset left knee swelling she says the swelling has gone down since this has happened she says the pain was so severe that she was unable to ambulate on it. No recent fevers or chills no illnesses she is anticoagulated on Eliquis PD PAST MEDICAL HISTORY - Past Medical History Past Medical History: Yes Cardiovascular: Pulmonary embolism, Atrial flutter, Atrial fibrillation Respiratory: Other Neuro: None Endocrine/Autoimmune: HyPOthyroidism GI: Cholelithiasis [employer] FARM MANAGER: None : None HEENT: None Psych: Depression, Anxiety Musculoskeletal: Osteoarthritis Derm: None - Past Surgical History Past Surgical History: Yes General: Colonoscopy /GENERAL FARM MANAGER: Hysterectomy HEENT: Tonsil/Adenoidectomy - Present Medications Home Medications: Ambulatory Orders Medication Instructions Recorded Confirmed Levothyroxine Sodium [Synthroid] 175 mcg PO DAILY 12/23/16 12/23/16 Venlafaxine ER [Effexor ER] 75 mg PO DAILY 12/23/16 12/23/16 gemfibroziL [Gemfibrozil] 600 mg PO BID #60 tablet 12/23/16 Apixaban [Eliquis] 5 mg PO BID 01/06/24 01/06/24 Ezetimibe [Zetia] 10 mg PO DAILY 01/06/24 Metoprolol Tartrate [Lopressor] 10 mg PO DAILY 01/06/24 Pravastatin [Pravachol] 80 mg PO DAILY 01/06/24 - Allergies Allergies/Adverse Reactions: Allergies Allergy/AdvReac Type Severity Reaction Status Date / Time No Known Drug Allergies Allergy Verified 01/06/24 14:49 - Social History Does the pt smoke?: No Smoking Status: Never smoker Does the pt drink ETOH?: Yes Does the pt have substance abuse?: No - Immunizations Immunizations are current?: Yes - POLST Patient has POLST: No POLST Status: Full Code PD ED PE NORMAL - Vitals Vital signs reviewed: Yes - General General: Alert and oriented X 3, No acute distress, Well developed/nourished - Free text exam Free text exam: Left lower extremity: Left knee more swollen than right knee warm to the touch there is ecchymosis to her sahu with a hematoma there is also a superficial abrasion to her left lateral sahu near her ankle drainage is clear no purulent drainage visualized. There is erythema surrounding the wound. Tenderness with flexion extension of the left knee. Results - Vitals Vitals: Oxygen O2 Source Room air - Labs Labs: Laboratory Tests 01/06/24 01/06/24 01/06/24 18:15 18:15 18:15 WBC 5.8 RBC 3.48 L Hgb 11.2 L Hct 34.5 L MCV 99.1 H MCH 32.2 H MCHC 32.5 RDW 11.9 L Plt Count 185 MPV 11.6 H Neut # (Auto) 3.0 Lymph # (Auto) 2.0 [place] # (Auto) 0.7 Eos # (Auto) 0.2 Baso # (Auto) 0.0 Absolute Nucleated RBC 0.00 Nucleated RBC % 0.0 ESR 27 Sodium 135 Potassium 4.0 Chloride 102 Carbon Dioxide 27 Anion Gap 6.0 BUN 8 Creatinine 0.5 L Estimated GFR (MDRD) 122 Glucose 99 Uric Acid Calcium 9.5 Magnesium 2.0 Total Bilirubin 0.8 AST 17 ALT 14 Alkaline Phosphatase 111 C-React Prot High Sens 56.91 Total Protein 6.7 Albumin 4.0 Globulin 2.7 Albumin/Globulin Ratio 1.5 Lipase < 10 L Procalcitonin Immunoas 01/06/24 01/06/24 18:15 18:15 WBC RBC Hgb Hct MCV MCH MCHC RDW Plt Count MPV Neut # (Auto) Lymph # (Auto) [place] # (Auto) Eos # (Auto) Baso # (Auto) Absolute Nucleated RBC Nucleated RBC % ESR Sodium Potassium Chloride Carbon Dioxide Anion Gap BUN Creatinine Estimated GFR (MDRD) Glucose Uric Acid 3.6 Calcium Magnesium Total Bilirubin AST ALT Alkaline Phosphatase C-React Prot High Sens Total Protein Albumin Globulin Albumin/Globulin Ratio Lipase Procalcitonin Immunoas < 0.05 - Rads (name of study) Left knee x-ray Relevant Findings:: Final report received, EMP independent interpretation of test, Other (No acute fracture no osseous lesion) PD Medical Decision Making - ED course ED course: 73-year-old female presents emergency department for left knee pain and inflammation and swelling. The knee is warm to touch, concern for possible septic arthritis. Given that she does have a knee arthroplasty and she is on Eliquis I spoke with the on-call orthopedic surgeon Dr. Kraus who recommends doing a knee tap for further evaluation. Labs are complete she does not have any leukocytosis electrolytes are normal procalcitonin is within normal limits CRP is 56.9, uric acid 3.6 not entirely ruling out gout but although her story just not [place] since that this could be related to gout given her symptoms. Arthrocentesis was complete by myself and I was unable to collect any fluid Dr. Watt also complete an arthrocentesis and again it was another dry tap. Given that we are unable to collect any fluid this is making us less suspicious or concern for possible septic joint. At this point in time I am not entirely sure what caused patient to have the sudden onset of swelling after putting on her pants there could be a benign hematoma within the knee that does not require any hospitalization or draining. Patient was offered pain medications but she kindly declined she is told to follow-up with her orthopedic surgeon and let them know about today's ER visit and she is also given strict ER return precautions. I Mepilex was placed over patient's wound that is having delayed healing and patient was given extra Mepilex change in 2 to 3 days. She is told to follow-up with her primary care provider or the provider who put her on Keflex and a couple days for reevaluation of the wound and cellulitis. I do not believe broadening antibiotic coverage at this point in time is warranted. Strict ER return precautions given all questions answered patient was told to elevate her knee frequently above her heart knee immobilizer placed to help with the inflammation and swelling pain, she is told to take it off periodically and still bend her knee throughout the day. And she is safe for discharge at this time. Departure - Departure Disposition: 01 Home, Self Care Clinical Impression: Hematoma of left knee region Instructions: ED Hematoma Comments: Thank you for trusting us with your care. We have completed labs, x-ray and attempted to do a knee tap but we are unable to collect any fluid which is a good thing. Please help with your primary care provider to let them know about today's ER visit and possible physical therapy referral. I would also call your orthopedic surgeon and let him also know about today's ER visit have a very low threshold to come back to the ER if you are starting develop any fevers worsening knee pain worsening swelling with redness please come back to the ER. Continue your Keflex as prescribed keep your leg elevated above your heart is much as possible to help with any inflammation and swelling. We have placed a Mepilex dressing over the wound on your left lower extremity You can buy these types of dressings on [employer] and I would recommend getting these for the wound on your left lower leg and change them every 2 to 3 days keep the Mepilex covered and dry do not get it wet in the shower and these dressings are very helpful with wound healing. Again please do not hesitate to report back to the emergency department for any worsening symptoms at all. Forms: PCP List Discharge Date/Time: 01/06/24 20:49
[2024-01-06 18:29] LABS: BASOPHILS % (AUTO) 0.5 %; EOSINOPHILS # (AUTO) 0.2 10^3/uL (0.0-0.7); EOSINOPHILS % (AUTO) 2.7 %; HCT - HEMATOCRIT 34.5 % (37.0-47.0); HGB - HEMOGLOBIN 11.2 g/dL (12.0-16.0); LYMPHOCYTES % (AUTO) 33.4 %; MEAN CORPUSCULAR HEMOGLOBIN 32.2 pg (27.0-31.0); MEAN CORPUSCULAR HGB CONC 32.5 g/dL (32.0-36.0); MEAN CORPUSCULAR VOLUME 99.1 fL (81.0-99.0); MEAN PLATELET VOLUME 11.6 fL (7.9-10.8); MONOCYTES # (AUTO) 0.7 10^3/uL (0.0-1.0); MONOCYTES % (AUTO) 11.1 %; NEUTROPHILS % (AUTO) 51.8 %; PLT - PLATELET COUNT 185 10^3/uL (130-450); RED BLOOD COUNT 3.48 10^6/uL (4.20-5.40); RED CELL DISTRIBUTION WIDTH 11.9 % (12.0-15.0); WHITE BLOOD COUNT 5.8 x10^3/uL (4.8-10.8)
[2024-01-06 18:49] LABS: ALBUMIN/GLOBULIN RATIO 1.5 (1.0-2.2); ALKALINE PHOSPHATASE 111 IU/L (42-121); ALT ALANINE AMINOTRANSFERASE 14 IU/L (10-60); AST ASPARTATE AMINOTRANSFERASE 17 IU/L (10-42); BILIRUBIN,TOTAL 0.8 mg/dL (0.2-1.0); BUN - BLOOD UREA NITROGEN 8 mg/dL (6-20); CALCIUM 9.5 mg/dL (8.5-10.3); CARBON DIOXIDE - CO2 27 mmol/L (21-32); CHLORIDE 102 mmol/L (101-111); CREATININE 0.5 mg/dL (0.6-1.3); CRP HIGH SENSITIVITY 56.91 mg/L; GFR - MDRD 122 (>89); GLUCOSE 99 mg/dL (74-104); SODIUM 135 mmol/L (135-145); TOTAL PROTEIN 6.7 g/dL (6.4-8.9)
[2024-01-06 18:54] LABS: LIPASE < 10 U/L (11-82)
[2024-01-06] MEDS ORDERED: LIDOCAINE 1%-EPI 1:100000 20 ML MDV ONE (19:41)
[2024-01-06] MEDS: LIDOCAINE 2%-EPI 1:100000 20 ML MDV SUBQ STA (19:41)
[2024-01-06 20:08] VITALS: BP 150/69; O2SAT 99
[2024-01-06] MEDS: HYDROcod/ACETAM 5/325 MG TABLET PO STA (20:14)
== END 2024-01-06 20:49 | disposition home or self-care (01) ==
LOC: ED 14:16
DX: M79.81 Nontraumatic hematoma of soft tissue (principal); Z96.652 Presence of left artificial knee joint; Z79.01 Long term (current) use of anticoagulants; I48.91 Unspecified atrial fibrillation; Z86.711 Personal history of pulmonary embolism; E03.9 Hypothyroidism, unspecified
CPT/HCPCS: 20610; 36415; 73564; 80053; 83690; 83735; 84145; 84550; 85025; 85651; 86141; 99283; 99284; A9270